=== PATIENT | female | born 1930 | race Caucasian/White ===

== ENCOUNTER 2016-10-26 08:00 | Emergency (ER) | payer MEDICARE ==
[~2016-10-26 08:00] MED LIST: ACETAMINOPHEN500 M1 PO; BISCOLAX10 MG PR; CALCIUM 600 +1 EAC6 PO; CARBAMAZEPINE200 MG PO; DAILY MULTIPLE1 EAC1 PO; DOCUSATE SODIU1 EACH PO; GAVILAX17 GM PO; KLONOPIN TAB 00.5 MG PO; LACTULOSE10 GM/152 PO; LIBRIUM CAP 1010 MG PO; LINZESS145 MCG PO; LOPID TAB 600600 MG PO; NEURONTIN 400400 MG PO; TEGRETOL 200 M200 MG PO; VITAMIN D32000 UNIT PO; VITAMIN D350000 UNIT PO
[2016-10-26 08:28] LABS: HEMOGLOBIN 12.1 gm/dl (12.3-15.3); RED BLOOD COUNT 3.97 M/UL (4.00-5.10); WHITE BLOOD COUNT 5.3 K/UL (4.5-11.0)
[2016-10-26 08:47] LABS: BUN/CREATININE RATIO 32 (0-10)
== END 2016-10-26 10:32 | disposition home or self-care (01) ==
LOC: ER1 08:00
PROVIDERS: Emergency Medicine
DX: G40.909 Epilepsy, unspecified, not intractable, without status epilepticus (principal); I25.10 Atherosclerotic heart disease of native coronary artery without angina pectoris; F41.9 Anxiety disorder, unspecified
CPT/HCPCS: 36415; 70450; 80053; 80156; 81001; 85025; 93005; 99285